=== PATIENT | female | born 1950 | race African-American/Black ===

== ENCOUNTER 2017-01-29 14:37 | Inpatient (IN) | payer MEDICARE, OTHER ==
[~2017-01-29] VITALS: Ht 160 cm; Wt 113.4 kg
[~2017-01-29 14:37] MED LIST: ASPI81TA2 PO; CARV25TA2 PO; FURO-145 PO; INSU100V28 IJ; INUL2TAB2 PO; LOSA25TA13 PO
--- NOTE | 2017-01-29 14:50 | NUR ---
AAOX3, BIBRA C/O DIZZINESS AND FEELING NAUSEOUS, NO VOMITING. RESP IS EVEN AND UNLABORED WITH NAD NOTED. SKIN IS WARM AND DRY. DR BLANCO AT BS FOR EVAL.
[2017-01-29] MEDS ORDERED: MECLIZINE HCL 12.5 MG TABLET PO ONE (15:00)
[2017-01-29] MEDS ORDERED: ONDANSETRON HCL/PF 4 MG/2 ML VIAL IVP ONE (15:00)
[2017-01-29 15:02] LABS: BASOPHILS # (AUTO) 0.1 /CMM (0.0-0.2); BASOPHILS % (AUTO) 0.6 % (0.0-2.0); EOSINOPHILS # (AUTO) 0.1 /CMM (0.0-0.7); EOSINOPHILS % (AUTO) 1.5 % (0.0-6.0); HEMATOCRIT 39 % (33-45); HEMOGLOBIN 12.6 g/dL (11.5-14.8); LYMPHOCYTES # (AUTO) 2.9 /CMM (0.8-4.8); LYMPHOCYTES % (AUTO) 34.9 % (20.0-44.0); MEAN CORPUSCULAR HEMOGLOBIN 29 PG (26.0-33.0); MEAN CORPUSCULAR HGB CONC 32 g/dl (31.0-36.0); MEAN CORPUSCULAR VOLUME 89 fL (82-100); MONOCYTES # (AUTO) 0.6 /CMM (0.1-1.30); MONOCYTES % (AUTO) 6.7 % (2.0-12.0); NEUTROPHILS # (AUTO) 4.7 /CMM (1.8-8.9); NEUTROPHILS % (AUTO) 56.3 % (43.0-81.0); PLATELET COUNT (AUTO) 255 /CMM (150-450); RDW COEFFICIENT OF VARIATION 14.7 (11.5-15.0); RED BLOOD CELL COUNT(AUTO) 4.38 MIL/uL (4.0-5.2); WHITE BLOOD COUNT (AUTO) 8.3 K/uL (4.3-11.0)
[2017-01-29] MEDS ORDERED: ONDANSETRON HCL/PF 4 MG/2 ML VIAL ONE (15:04)
[2017-01-29] MEDS ORDERED: MECLIZINE HCL 25 MG TABLET ONE (15:04)
--- NOTE | 2017-01-29 15:15 | NUR ---
TRANSPORTED FOR CT HEAD
[2017-01-29 15:23] LABS: CALCIUM, SERUM 9.2 mg/dL (8.5-10.1); CREATININE 0.9 mg/dL (0.6-1.3); POTASSIUM 4.2 mmol/L (3.5-5.1); TROPONIN I 0.038 ng/mL (0.00-0.056)
[2017-01-29 15:25] LABS: INR 0.92 (0.87-1.13); PROTHROMBIN TIME 9.6 SECS (9.5-12.7)
[2017-01-29] MEDS ORDERED: INSULIN REGULAR, HUMAN 100 UNIT/ML 10 ML VIAL ONE (15:59)
[2017-01-29] MEDS ORDERED: INSULIN REGULAR, HUMAN 100 UNIT/ML 10 ML VIAL SQ ONE (16:00)
[2017-01-29] MEDS ORDERED: HYDR-552 PO (16:46)
[2017-01-29] MEDS ORDERED: GABA-534 PO (16:46)
[2017-01-29] MEDS ORDERED: HYDR4TAB57 PO (16:46)
[2017-01-29] MEDS ORDERED: INSU100V3 SQ (16:46)
[2017-01-29] MEDS ORDERED: NPH,100V SQ (16:46)
--- NOTE | 2017-01-29 17:35 | NUR ---
REPORT GIVEN TO YANET DELA CRUZ FOR ROSALIA MS 204
[2017-01-29] MEDS ORDERED: IV NS 0.9% 1,000 ML IV PRN (17:44)
[2017-01-29] MEDS ORDERED: MAGNESIUM HYDROXIDE 30 ML UDC PO PRN (18:00)
[2017-01-29] MEDS ORDERED: ONDANSETRON HCL/PF 4 MG/2 ML VIAL IVP PRN (18:00)
[2017-01-29] MEDS ORDERED: HYDROCODONE/APAP 5/325MG 1 EACH TABLET PO PRN (18:00)
[2017-01-29] MEDS ORDERED: DEXTROSE 50%-WATER 50 ML DISP.SYRIN IV PRN (18:00)
[2017-01-29] MEDS ORDERED: MAG HYDROX/AL HYDROX/SIMETH 30 ML UDC PO PRN (18:00)
[2017-01-29 18:28] VITALS: BP 159/68
--- NOTE | 2017-01-29 18:30 | NUR ---
RN NOTES RECEIVED PATIENT FROM ER. NO SOB OR DISTRESS NOTED AT THIS TIME. PATIENT DENIES PAIN, BUT REPORT DIZZINESS. VITALS CHECKED AND RECORDED. PATIENT ORIENTED TO ROOM AND CALL LIGHT. BED IN A LOW POSITION, CALL LIGHT WITHIN PATIENT REACH. WILL ENDORSE FOR ROSALIA.
[2017-01-29 20:00] VITALS: BP_SYST 120; BP_SYST 143; BP_DIAS 66; BP_DIAS 78
--- NOTE | 2017-01-29 20:00 | NUR ---
MS RN NOTES RECEIVED RESTING COMFORTABLY ON BED,A/O X4,STILL WITH EPISODE OF DIZZINESS.SALINE LOCK RIGHT AC INTACT AND PATENT.OBESE,WITH LEFT FOOT OLD WOUND NONE DRAINING NOTES.CLAIMED WITH KNOWN HX OF STROKE 2010,SLIGHT WEAKNESS NOTED ON RIGHT ARM AND RIGHT LEG.AMBULATE WITH WALKER.WITH KNOWN HX OF PREVIOUS FALLS 2 MOS AGO.WILL CONTINUE TO MONITOR STATUS.
[2017-01-29] MEDS: CARVEDILOL 12.5 MG TABLET PO SCH (21:03)
[2017-01-29] MEDS: MECLIZINE HCL 12.5 MG TABLET PO PRN (21:06)
--- NOTE | 2017-01-29 21:06 | NUR ---
MS RN NOTES STILL FEELING DIZZY,MEDICATED WITH MECLIZINE 25MG PO ORDERED.
[2017-01-29] MEDS: BLOOD SUGAR DIAGNOSTIC 1 EACH STRIP VI SCH (21:08)
[2017-01-29] MEDS: *INSULIN REGULAR(HUMULIN R)HUM 100 UNIT/ML VIAL SQ PRN (21:13)
--- NOTE | 2017-01-29 21:30 | NUR ---
MS RN NOTES ACCU-CHECK BLOOD SUGAR [id number],COVERED WITH HUMULIN R 6 UNITS PER SLIDING SCALE.SNACKS PROVIDED AT BEDSIDE.
[2017-01-30] MEDS: BLOOD SUGAR DIAGNOSTIC 1 EACH STRIP VI SCH ×4 (05:54→22:30)
[2017-01-30] MEDS: INSULIN REGULAR, HUMAN 100 UNIT/ML 3 ML VIAL SQ PRN ×3 (05:59→18:25)
--- NOTE | 2017-01-30 06:09 | NUR ---
MS RN NOTES BLOOD SUGAR CHECK 139,COVERED WITH HUMULIN R 2 UNITS PER SLIDING SCALE.SLEPT WELL.STILL FEEL DIZZY BUT NOT THAT STRONG.CALL LIGHT IN REACH,NEEDS ATTENDED.WILL ENDORSE TO DAY NURSE FOR ROSALIA.
--- NOTE | 2017-01-30 06:33 | NUR ---
MS RN NOTES IV SITE INFILTRATED,NEW SALINE LOCK PLACE ON RFA#22,SAME IVF INFUSING.
[2017-01-30 06:51] LABS: BASOPHILS % (AUTO) 0.2 % (0.0-2.0); EOSINOPHILS # (AUTO) 0.1 /CMM (0.0-0.7); EOSINOPHILS % (AUTO) 1.1 % (0.0-6.0); HEMATOCRIT 38 % (33-45); HEMOGLOBIN 12.1 g/dL (11.5-14.8); LYMPHOCYTES # (AUTO) 3.3 /CMM (0.8-4.8); LYMPHOCYTES % (AUTO) 43.1 % (20.0-44.0); MEAN CORPUSCULAR HEMOGLOBIN 29 PG (26.0-33.0); MEAN CORPUSCULAR HGB CONC 32 g/dl (31.0-36.0); MEAN CORPUSCULAR VOLUME 90 fL (82-100); MONOCYTES # (AUTO) 0.5 /CMM (0.1-1.30); MONOCYTES % (AUTO) 6.7 % (2.0-12.0); NEUTROPHILS # (AUTO) 3.8 /CMM (1.8-8.9); NEUTROPHILS % (AUTO) 48.9 % (43.0-81.0); PLATELET COUNT (AUTO) 241 /CMM (150-450); RDW COEFFICIENT OF VARIATION 14.7 (11.5-15.0); RED BLOOD CELL COUNT(AUTO) 4.21 MIL/uL (4.0-5.2); WHITE BLOOD COUNT (AUTO) 7.7 K/uL (4.3-11.0)
--- NOTE | 2017-01-30 07:06 | NUR ---
RN INITIAL NOTES REPORT RECEIVED AT THE BEDSIDE. PATIENT IS SLEEPING. NO SOB OR DISTRESS NOTED AT THIS TIME. PATIENT DOES NOT APPEAR TO BE IN PAIN, NO FACIAL GRIMACE NOTED. BED IN A LOW POSITION, CALL LIGHT WITHIN PATIENT REACH. WILL CONTINUE TO MONITOR.
[2017-01-30 07:15] LABS: THYROID STIMULATING HORMONE 0.798 uIU/mL (0.358-3.74)
[2017-01-30 07:33] LABS: CREATININE 0.8 mg/dL (0.6-1.3); MAGNESIUM 1.9 mg/dL (1.8-2.4); POTASSIUM 4.1 mmol/L (3.5-5.1)
[2017-01-30 08:00] VITALS: BP 143/76
[2017-01-30] MEDS: ASPIRIN 81 MG TAB.CHEW PO SCH (08:54)
[2017-01-30] MEDS: INSULIN NPH, HUMAN ISOPHANE 100 UNIT/ML VIAL SQ SCH ×2 (08:55→16:37)
[2017-01-30] MEDS: CARVEDILOL 12.5 MG TABLET PO SCH ×2 (08:55→22:29)
[2017-01-30] MEDS: GABAPENTIN 300 MG CAPSULE PO SCH ×3 (08:55→16:37)
[2017-01-30] MEDS: INSULIN REGULAR, HUMAN 100 UNIT/ML 3 ML VIAL SQ SCH ×2 (08:55→16:37)
[2017-01-30] MEDS: FAMOTIDINE (20 MG) 20 MG TABLET PO SCH (08:55)
[2017-01-30] MEDS: LOSARTAN POTASSIUM 25 MG TABLET PO SCH (08:55)
[2017-01-30] MEDS: MECLIZINE HCL 12.5 MG TABLET PO PRN (08:58)
[2017-01-30 16:24] LABS: APPEARANCE,URINE CLEAR (CLEAR); BILIRUBIN,URINE NEGATIVE (NEGATIVE); BLOOD, URINE TRACE-INTA Ery/uL (NEGATIVE); COLOR,URINE YELLOW (YELLOW); KETONES,URINE NEGATIVE (NEGATIVE); LEUKOCYTE ESTERASE ,URINE NEGATIVE (NEGATIVE); NITRITE, URINE NEGATIVE (NEGATIVE); PH,URINE 5.5 (5.0-8.0); PROTEIN,URINE NEGATIVE (NEGATIVE); UGLUCOSE 2+ mg/dL (NEGATIVE)
[2017-01-30 16:28] VITALS: BP 142/73
[2017-01-30 16:34] LABS: BACTERIA,URINE 3+ /HPF (None Seen)
[2017-01-30] MEDS: SILVER SULFADIAZINE CREAM 25 GM TUBE TP SCH (16:36)
[2017-01-30 20:00] VITALS: BP 137/67
[2017-01-30] MEDS: *INSULIN REGULAR(HUMULIN R)HUM 100 UNIT/ML VIAL SQ PRN (22:36)
[2017-01-31] MEDS: SILVER SULFADIAZINE CREAM 25 GM TUBE TP SCH ×2 (02:30→04:02)
--- NOTE | 2017-01-31 05:36 | NUR ---
MS RN NOTE PATIENT REFUSING PICTURE TO BE TAKEN OF WOUND. WILL TRY AGAIN LATER.
--- NOTE | 2017-01-31 06:13 | NUR ---
RN CLOSING NOTES PATIENT SLEEPING IN BED. NO SOB OR DISTRESS NOTED AT THIS TIME. PATIENT DOES NOT APPEAR TO BE IN PAIN, NO FACIAL GRIMACE NOTED. BED IN A LOW POSITION, CALL LIGHT WITHIN PATIENT REACH. WILL ENDORSE TO DAY SHIFT FOR ROSALIA.
[2017-01-31] MEDS: BLOOD SUGAR DIAGNOSTIC 1 EACH STRIP VI SCH ×4 (06:42→21:44)
--- NOTE | 2017-01-31 07:45 | NUR ---
RN MS NOTES PATIENT ALERT AND ORIENTED X4, DENIES PAIN AT THIS TIME, SEEN BY DR. FITZGERALD AND DISCUSSED A LEFT FOOT BIOPSY, PATIENT AGREED, NEEDS ATTENDED AND MET, CALL LIGHT WITHIN REACH, WILL CONTINUE TO MONITOR.
[2017-01-31] MEDS: INSULIN REGULAR, HUMAN 100 UNIT/ML 3 ML VIAL SQ PRN ×2 (07:57→12:13)
[2017-01-31 08:00] VITALS: BP 164/97
--- NOTE | 2017-01-31 08:48 | NUR ---
WOUND CARE CONSULT: PT PRESENTS WITH LEFT FOOT WOUND, PRESENT ON ADMISSION. RECOMMENDATIONS MADE FOR WOUND CARE AND SKIN PROTECTION. DISCUSSED WITH NURSING STAFF. PT IS AMBULATORY AND CONTINENT. ABHAY SCORE CURRENTLY 19. WILL SEE PRN. STAUFFER IN AGREEMENT WITH PLAN OF CARE. Addendum: 01/31/17 at 0850 by KATIE VALLE WNDNU Amended: Links added.
[2017-01-31] MEDS: GABAPENTIN 300 MG CAPSULE PO SCH ×3 (09:22→17:36)
[2017-01-31] MEDS: FAMOTIDINE (20 MG) 20 MG TABLET PO SCH (09:22)
[2017-01-31] MEDS: ASPIRIN 81 MG TAB.CHEW PO SCH (09:22)
[2017-01-31] MEDS: CARVEDILOL 12.5 MG TABLET PO SCH ×2 (09:23→21:43)
[2017-01-31] MEDS: LOSARTAN POTASSIUM 25 MG TABLET PO SCH (09:23)
[2017-01-31] MEDS: INSULIN REGULAR, HUMAN 100 UNIT/ML 3 ML VIAL SQ SCH ×2 (09:29→17:00)
[2017-01-31] MEDS: INSULIN NPH, HUMAN ISOPHANE 100 UNIT/ML VIAL SQ SCH ×2 (09:30→17:00)
[2017-01-31] MEDS: ACETAMINOPHEN 325 MG TABLET PO PRN ×2 (12:22→21:43)
[2017-01-31 16:00] VITALS: BP 141/77
[2017-01-31] MEDS ORDERED: LIDOCAINE 1% INJ 50 ML MDV IJ ONE (16:30)
--- NOTE | 2017-01-31 17:47 | NUR ---
RN MS NOTES LEFT FOOT BIOPSY COMPLETED BY DR. FITZGERALD, LEFT FOOT WITH SMALL SUTURE, AND COVERED WITH KERLIX. TREATMENT COMPLETED. BIOPSY SAMPLE SENT TO PATHOLOGY.
--- NOTE | 2017-01-31 18:33 | NUR ---
RN MS NOTES PATIENT ALERT AND ORIENTED, BS 115, REGULAR INSULIN AND NOVOLIN N, REFUSED BY PATIENT, WILL MONITOR FOR S/SX OF HYPO OR HYPERGLYCEMIA, DENIES PAIN AT THIS TIME, LEFT FOOT COVERED WITH KERLIX, NO BLEEDING NOTED, ASSISTED TO RESTROOM, ABLE TO AMBULATE WITH WALKER, REFUSED PT THIS AFTERNOON, CALL LIGHT WITHIN REACH, WILL ENDORSE TO HAM SMOKER FOR ROSALIA.
--- NOTE | 2017-01-31 19:30 | NUR ---
MS RN NOTE RECEIVED PATIENT AWAKE AND ALERT IN BED. NO DISTRESS OR SOB NOTED. IV SITE INTACT WITH NO REDNESS NOTED. BED LOCKED AND IN LOWEST POSITION. SIDE RAILS UP, CALL LIGHT WITHIN REACH. WILL CONTINUE TO MONITOR.
[2017-01-31 20:00] VITALS: BP_SYST 170; BP_SYST 173; BP_DIAS 83; BP_DIAS 85
--- NOTE | 2017-01-31 20:00 | NUR ---
MS RN NOTE PATIENT PICKED UP FOR BRAIN MRI.
--- NOTE | 2017-01-31 20:50 | NUR ---
MS RN NOTE PATIENT RETURNED FROM MRI IN STABLE CONDITION.
[2017-01-31] MEDS: *INSULIN REGULAR(HUMULIN R)HUM 100 UNIT/ML VIAL SQ PRN (21:48)
[2017-01-31] MEDS ORDERED: INSULIN DETEMIR 100 UNIT/ML CARTRIDGE SQ SCH (22:00)
[2017-01-31] MEDS ORDERED: ATORVASTATIN 40 MG TABLET PO SCH (22:00)
[2017-02-01] MEDS: BLOOD SUGAR DIAGNOSTIC 1 EACH STRIP VI SCH ×3 (06:39→17:33)
[2017-02-01] MEDS: ACETAMINOPHEN 325 MG TABLET PO PRN ×2 (06:39→12:39)
--- NOTE | 2017-02-01 06:56 | NUR ---
MS RN NOTE PATIENT STABLE. WILL ENDORSE TO DAY SHIFT FOR ROSALIA.
--- NOTE | 2017-02-01 07:56 | NUR ---
RN NOTES RECEIVED PT. PT IS STABLE AND RESTING IN BED. A/OX4. PT IS ON RA WITH O2 SAT ABOVE 95%. NO S/S OF DISTRESS OR SOB AT THIS TIME. IV ACCESS LOCATED ON RIGHT FA 22G SL. SAFETY MEASURES IN PLACE, CALL LIGHT WITHIN REACH. WILL CONTINUE TO MONITOR.
[2017-02-01 08:00] VITALS: BP 151/82
[2017-02-01] MEDS: ASPIRIN 81 MG TAB.CHEW PO SCH (08:26)
[2017-02-01] MEDS: FAMOTIDINE (20 MG) 20 MG TABLET PO SCH (08:27)
[2017-02-01] MEDS: GABAPENTIN 300 MG CAPSULE PO SCH ×3 (08:27→17:01)
[2017-02-01] MEDS: LOSARTAN POTASSIUM 25 MG TABLET PO SCH (08:27)
[2017-02-01] MEDS: CARVEDILOL 12.5 MG TABLET PO SCH (08:28)
[2017-02-01] MEDS: INSULIN NPH, HUMAN ISOPHANE 100 UNIT/ML VIAL SQ SCH ×2 (08:42→17:22)
[2017-02-01] MEDS ORDERED: HYDROGEL DRESSING 90 GM TUBE TP SCH (09:00)
[2017-02-01] MEDS: INSULIN REGULAR, HUMAN 100 UNIT/ML 3 ML VIAL SQ SCH ×2 (09:00→17:00)
--- NOTE | 2017-02-01 09:47 | NUR ---
RN NOTES AM SCHEDULED REGULAR INSULIN HELD PER INITIAL BS READING OF 161.
[2017-02-01 09:54] LABS: BASOPHILS # (AUTO) 0.1 /CMM (0.0-0.2); BASOPHILS % (AUTO) 0.6 % (0.0-2.0); EOSINOPHILS # (AUTO) 0.1 /CMM (0.0-0.7); EOSINOPHILS % (AUTO) 1.4 % (0.0-6.0); HEMATOCRIT 39 % (33-45); HEMOGLOBIN 12.3 g/dL (11.5-14.8); LYMPHOCYTES # (AUTO) 3.4 /CMM (0.8-4.8); LYMPHOCYTES % (AUTO) 39.1 % (20.0-44.0); MEAN CORPUSCULAR HEMOGLOBIN 28 PG (26.0-33.0); MEAN CORPUSCULAR HGB CONC 32 g/dl (31.0-36.0); MEAN CORPUSCULAR VOLUME 90 fL (82-100); MONOCYTES # (AUTO) 0.6 /CMM (0.1-1.30); MONOCYTES % (AUTO) 7.1 % (2.0-12.0); NEUTROPHILS # (AUTO) 4.5 /CMM (1.8-8.9); NEUTROPHILS % (AUTO) 51.8 % (43.0-81.0); PLATELET COUNT (AUTO) 234 /CMM (150-450); RDW COEFFICIENT OF VARIATION 15.2 (11.5-15.0); RED BLOOD CELL COUNT(AUTO) 4.34 MIL/uL (4.0-5.2); WHITE BLOOD COUNT (AUTO) 8.7 K/uL (4.3-11.0)
[2017-02-01 10:01] LABS: CALCIUM, SERUM 9.2 mg/dL (8.5-10.1); CREATININE 0.8 mg/dL (0.6-1.3); POTASSIUM 4.1 mmol/L (3.5-5.1)
[2017-02-01] MEDS: INSULIN REGULAR, HUMAN 100 UNIT/ML 3 ML VIAL SQ PRN ×2 (12:26→17:01)
[2017-02-01 16:00] VITALS: BP 124/49
--- NOTE | 2017-02-01 18:56 | NUR ---
DISCHARGE NOTE PT D/C HOME. ALL DISCHARGE PAPERWORK SIGNED AND COPIED. PT EXITCARE EDUCATION PERFORMED. PT VERBALIZED UNDERSTANDING. BELONGINGS LIST SIGNED AND COPIED. PT VERBALIZES UNDERSTANDING OF ALL TEACHING. MD PRESCRIPTION GIVEN TO PT. PT DISCHARGED TO FRIEND, SUNG AND LEFT IN A PRIVATE CARE.
== END 2017-02-01 19:16 | disposition home or self-care (01) | DRG 74 ==
LOC: ER 14:39 → MEDSG2 17:22
PROVIDERS: ADMIT Nurse Practitioner Acute Care; ATTEND Nurse Practitioner Acute Care
PROC: 0HBNXZX Excision of Left Foot Skin, External Approach, Diagnostic (ICD-10-PCS; principal; 2017-01-31)
DX: G90.8 Other disorders of autonomic nervous system (principal); E44.0 Moderate protein-calorie malnutrition; I11.0 Hypertensive heart disease with heart failure; E11.621 Type 2 diabetes mellitus with foot ulcer; I50.32 Chronic diastolic (congestive) heart failure; Z68.41 Body mass index [BMI] 40.0-44.9, adult; E11.42 Type 2 diabetes mellitus with diabetic polyneuropathy; E11.65 Type 2 diabetes mellitus with hyperglycemia; G89.29 Other chronic pain; Z88.0 Allergy status to penicillin; K27.9 Peptic ulcer, site unspecified, unspecified as acute or chronic, without hemorrhage or perforation; E66.01 Morbid (severe) obesity due to excess calories; L97.529 Non-pressure chronic ulcer of other part of left foot with unspecified severity; I87.2 Venous insufficiency (chronic) (peripheral)
CPT/HCPCS: 36415; 70450-TC; 70551-TC; 71010-TC; 80048-TC; 80061-TC; 81000-TC; 82962-TC; 83690-TC; 83735-TC; 84100-TC; 84443-TC; 84484-TC; 85025-TC; 85730-TC; 87081-TC; 87086-TC; 88305-TC; 88312-TC; 97116-TC; 97530-TC; A4606; A6248; A6403; J1815; J2405; J3490; J7030; J8597; Z7610

== ENCOUNTER 2017-02-17 11:00 | Outpatient (CLI) | payer MEDICARE, OTHER ==
[~2017-02-17 11:00] MED LIST changes: -FURO-145 PO; +GABA-534 PO; +HYDR-552 PO; +HYDR4TAB57 PO; -INSU100V28 IJ; +INSU100V3 SQ; -INUL2TAB2 PO; +NPH,100V SQ
== END 2017-02-17 23:59 | disposition home or self-care (01) ==
LOC: WOU 11:00
PROVIDERS: ATTEND Podiatrist Foot & Ankle Surgery
DX: E11.40 Type 2 diabetes mellitus with diabetic neuropathy, unspecified (principal); B35.3 Tinea pedis; Z87.891 Personal history of nicotine dependence
CPT/HCPCS: G0463

== ENCOUNTER 2017-10-17 13:15 | Outpatient (CLI) | payer MEDICARE, OTHER ==
[~2017-10-17 13:15] MED LIST changes: +ASPI-1169 PO; -ASPI81TA2 PO
== END 2017-10-17 23:59 | disposition home or self-care (01) ==
LOC: WOU 13:15
PROVIDERS: ATTEND Podiatrist Foot & Ankle Surgery
DX: E11.40 Type 2 diabetes mellitus with diabetic neuropathy, unspecified (principal); B35.3 Tinea pedis; M79.672 Pain in left foot; E66.9 Obesity, unspecified; Z68.41 Body mass index [BMI] 40.0-44.9, adult
CPT/HCPCS: G0463; Z7610

== ENCOUNTER 2017-10-29 14:32 | Emergency (ER) | payer MEDICARE, OTHER ==
[~2017-10-29] VITALS: Ht 160 cm; Wt 106.6 kg
--- NOTE | 2017-10-29 14:35 | NUR ---
AAOX3, CAME TO ER C/O DIZZINESS AND HYPERGLYCEMIA, HD=653VB/DL AT HOME. RR IS EVEN AND UNLABORED WITH NAD NOTED. SKIN IS WARM AND DRY. PLACED ON MONITOR. AWAITING MD FOR EVAL.
[2017-10-29] MEDS ORDERED: INSULIN REGULAR, HUMAN 100 UNIT/ML 10 ML VIAL ONE (15:29)
[2017-10-29] MEDS ORDERED: MECLIZINE HCL 25 MG TABLET ONE ×2 (15:29→20:59)
[2017-10-29] MEDS ORDERED: INSULIN REGULAR, HUMAN 100 UNIT/ML 10 ML VIAL SQ ONE (15:30)
[2017-10-29] MEDS ORDERED: MECLIZINE HCL 12.5 MG TABLET PO ONE ×2 (15:30→21:00)
[2017-10-29 15:47] LABS: BASOPHILS # (AUTO) 0.1 /CMM (0.0-0.2); BASOPHILS % (AUTO) 0.9 % (0.0-2.0); EOSINOPHILS % (AUTO) 1.3 % (0.0-6.0); HEMATOCRIT 39 % (33-45); HEMOGLOBIN 12.7 g/dL (11.5-14.8); LYMPHOCYTES # (AUTO) 2.5 /CMM (0.8-4.8); LYMPHOCYTES % (AUTO) 35.3 % (20.0-44.0); MEAN CORPUSCULAR HEMOGLOBIN 29 PG (26.0-33.0); MEAN CORPUSCULAR HGB CONC 33 g/dl (31.0-36.0); MEAN CORPUSCULAR VOLUME 88 fL (82-100); MONOCYTES # (AUTO) 0.6 /CMM (0.1-1.30); MONOCYTES % (AUTO) 8.4 % (2.0-12.0); NEUTROPHILS # (AUTO) 3.7 /CMM (1.8-8.9); NEUTROPHILS % (AUTO) 54.1 % (43.0-81.0); PLATELET COUNT (AUTO) 204 /CMM (150-450); RDW COEFFICIENT OF VARIATION 15.3 (11.5-15.0); RED BLOOD CELL COUNT(AUTO) 4.41 MIL/uL (4.0-5.2)
[2017-10-29 16:08] LABS: ALBUMIN 3.4 g/dL (3.4-5.0); BILIRUBIN,DIRECT 0.1 mg/dL (0.0-0.2); BILIRUBIN,TOTAL 0.5 mg/dL (0.2-1.0); CALCIUM, SERUM 9.4 mg/dL (8.5-10.1); CREATININE 0.9 mg/dL (0.6-1.3); POTASSIUM 4.6 mmol/L (3.5-5.1); TOTAL PROTEIN, SERUM 7.3 g/dL (6.4-8.2)
[2017-10-29 16:10] LABS: TROPONIN I 0.049 ng/mL (0.00-0.056)
[2017-10-29 16:19] LABS: INR 0.93 (0.85-1.15)
--- NOTE | 2017-10-29 19:22 | NUR ---
REPORT GIVEN TO DARIEN BLAND FOR ROSALIA.
--- NOTE | 2017-10-29 21:12 | NUR ---
SUNG CASTILLO [phone] CALL
--- NOTE | 2017-10-29 22:47 | NUR ---
WAITING FOR PT'S CT HEAD RESULT.
--- NOTE | 2017-10-29 23:28 | NUR ---
CALLED [facility] CASTILLO, NO ANSWER, LEFT VOICE MESSAGE.
--- NOTE | 2017-10-30 00:30 | NUR ---
IV removed. Catheter intact and site benign. Pressure and 4x4 applied to site. No bleeding noted.Patient discharged to home in stable condition. Written and verbal after care instructions given. Patient verbalizes understanding of instruction. VSS. PT LEFT VIA WC TO THE LOBBY. PT'S FAMILY MEMBER IS UBERING PT HOME. PT AMBULATES WITH A WALKER.
[2017-10-30 00:44] VITALS: BP 120/45
== END 2017-10-30 00:47 | disposition home or self-care (01) ==
LOC: ER 14:34
DX: H81.399 Other peripheral vertigo, unspecified ear (principal); E11.9 Type 2 diabetes mellitus without complications; I10 Essential (primary) hypertension; M19.90 Unspecified osteoarthritis, unspecified site; Z88.0 Allergy status to penicillin; Z88.5 Allergy status to narcotic agent; Z86.73 Personal history of transient ischemic attack (TIA), and cerebral infarction without residual deficits; Z79.82 Long term (current) use of aspirin; Z79.84 Long term (current) use of oral hypoglycemic drugs
CPT/HCPCS: 36415; 70450; 71045; 80048; 80076; 83690; 84484; 85025; 85730; 93005; 96372; 99285; A4606; J1815; J8597 ×2; Z7610

== ENCOUNTER 2022-03-02 15:01 | Inpatient (IN) | payer MEDICARE, OTHER ==
[~2022-03-02] VITALS: Ht 160 cm; Wt 104.8 kg
[~2022-03-02 15:01] MED LIST changes: +HYDR-4384 PO; -HYDR-552 PO; -LOSA25TA13 PO; +LOSA25TA27 PO
--- NOTE | 2022-03-02 15:10 | NUR ---
BIB RA 102 FROM HOME, WORSENING SOB X 3 DAYS, WHEEZING, ALBUTEROL HHN ENROUTE, O2SAT WENT UP FROM 84 TO 97 AFTER HHN. PLACED ON BED, TACHYPNEIC RR-27, SATURATING AT 91% ON 4LIT O2.
[2022-03-02] MEDS ORDERED: IPRATROPIUM NEB FS 0.5 MG/2.5 ML AMPUL.NEB NEB ONE (16:00)
[2022-03-02] MEDS ORDERED: ALBUTEROL FS 2.5 MG/0.5 ML VIAL.NEB NEB ONE (16:00)
--- NOTE | 2022-03-02 16:18 | NUR ---
BLOOD DRAWN AND SENT TO LAB
[2022-03-02 16:31] LABS: BASOPHILS # (AUTO) 0.1 K/uL (0.0-0.2); BASOPHILS % (AUTO) 0.8 % (0.0-2.0); EOSINOPHILS % (AUTO) 1.3 % (0.0-6.0); HEMATOCRIT 35 % (33-45); HEMOGLOBIN 11.2 g/dL (11.5-14.8); LYMPHOCYTES # (AUTO) 2.8 K/uL (0.8-4.8); LYMPHOCYTES % (AUTO) 23.4 % (20.0-44.0); MEAN CORPUSCULAR HGB CONC 32 g/dl (31.0-36.0); MEAN CORPUSCULAR VOLUME 87 fL (82-100); MONOCYTES # (AUTO) 0.5 K/uL (0.1-1.30); MONOCYTES % (AUTO) 4.6 % (2.0-12.0); NEUTROPHILS # (AUTO) 8.4 K/uL (1.8-8.9); NEUTROPHILS % (AUTO) 69.9 % (43.0-81.0); PLATELET COUNT (AUTO) 285 K/uL (150-450)
[2022-03-02] MEDS ORDERED: ALBU18HF2 IH (16:34)
[2022-03-02] MEDS ORDERED: INSU100V9 SQ (16:34)
[2022-03-02] MEDS ORDERED: NPH,100V2 SQ (16:34)
[2022-03-02] MEDS ORDERED: AMLO-213 PO (16:34)
[2022-03-02] MEDS ORDERED: INSU100I26 SQ (16:34)
[2022-03-02 16:48] LABS: CALCIUM, SERUM 9.4 mg/dL (8.5-10.1); CARBON DIOXIDE 28 mmol/L (21-32); CHLORIDE 103 mmol/L (98-107); CREATININE 0.9 mg/dL (0.6-1.3); GLUCOSE 172 mg/dL (74-106); POTASSIUM 4.7 mmol/L (3.5-5.1); SODIUM SERUM 139 mmol/L (136-145); UREA NITROGEN, BLOOD 14 mg/dL (7-18)
[2022-03-02] MEDS ORDERED: ALBUTEROL FS 2.5 MG/0.5 ML VIAL.NEB NEB PRN (17:00)
[2022-03-02] MEDS ORDERED: IPRATROPIUM NEB FS 0.5 MG/2.5 ML AMPUL.NEB NEB PRN (17:00)
[2022-03-02] MEDS ORDERED: DEXTROSE 50%-WATER 50 ML DISP.SYRIN IV PRN (17:00)
[2022-03-02] MEDS ORDERED: IPRATROPIUM NEB FS 0.5 MG/2.5 ML AMPUL.NEB ONE (17:37)
[2022-03-02] MEDS ORDERED: ALBUTEROL FS 2.5 MG/0.5 ML VIAL.NEB ONE (17:37)
[2022-03-02] MEDS: BLOOD SUGAR DIAGNOSTIC 1 EACH STRIP IN SCH ×2 (18:50→21:34)
[2022-03-02] MEDS: FUROSEMIDE 40 MG/4 ML VIAL IV SCH ×2 (19:00→22:15)
[2022-03-02] MEDS ORDERED: FUROSEMIDE 40 MG/4 ML VIAL ONE (19:01)
[2022-03-02 20:00] VITALS: BP 155/82
--- NOTE | 2022-03-02 20:08 | NUR ---
RN NOTE RECEIVED REPORT FROM BRANCH OR DEPARTMENT CHIEF LIBRARIANYANET LUA.
--- NOTE | 2022-03-02 20:08 | NUR ---
REPORT GIVEN TO PRINCESS HOLT ROOM 119-2 FOR ROSALIA
--- NOTE | 2022-03-02 20:19 | NUR ---
GETTING TRANSFERRED TO 119 UNDER ACLS
--- NOTE | 2022-03-02 20:36 | NUR ---
INITIAL RN NOTE PT ARRIVED TO UNIT VIA GURNEY. PT ADMITTED FOR CHF EXACERBATION WITH SIGNIFICANT MEDICAL HISTORY OF ASTHMA AND CHF. PT ON NON-REBREATHER MASK AT 8LPM WITH O2SAT OF 93%; NOTED TO HAVE SOB; NO OTHER S/S OF RESP DISTRESS, NO COUGH, NON-LABORED AND EQUAL BREATHING. PT ATTACHED TO EXTERNAL MONITOR, SR WITH HR OF 85. SKIN ASSESSMENT DONE, SKIN NOTED TO BE INTACT. IV ACCESS ON RFA 22G, INTACT AND PATENT, FLUSHES EASILY WITH NO RESISTANCE; NO MEDS/FLUIDS INFUSING THROUGH IT. BED IN LOWEST POSITION, CALL LIGHT WITHIN REACH, SIDE RAILS UP X3. WILL INITIATE PLAN OF CARE. Addendum: 03/03/22 at 0116 by PRINCESS VENKATA HOLT PT VACCINATED AGAINST COVID AND HAS RECEIVED 2 DOSES (YASSSU). FORMER SMOKER; HAD QUIT SMOKING 18 YRS AGO. NO HISTORY OF ALCOHOL USE
[2022-03-02] MEDS: INSULIN GLARGINE, 100 UNIT/ML CARTRIDGE SQ SCH (22:10)
[2022-03-02] MEDS: GABAPENTIN 300 MG CAPSULE PO SCH (22:15)
[2022-03-02] MEDS: CARVEDILOL 12.5 MG TABLET PO SCH (22:15)
[2022-03-03] VITALS: BP 137/56
[2022-03-03] MEDS: FUROSEMIDE 40 MG/4 ML VIAL IV SCH ×6 (02:01→18:30)
[2022-03-03 04:00] VITALS: BP 121/78
--- NOTE | 2022-03-03 07:04 | NUR ---
PROFESSIONAL SYSTEM ADMINISTRATOR CLOSING NOTE PT REMAINS IN BED, AWAKE, A&O X4, CALM, COOPERATIVE. CONTINUES TO BE ON NON-REBREATHER MASK AT 15 LPM WITH O2SAT RANGING FROM 93%-100% THROUGHOUT THE NIGHT; NOTED TO HAVE SOB WITH EXERTION; NO OTHER S/S OF RESP DISTRESS, NO COUGH, NON-LABORED AND EQUAL BREATHING. ATTACHED TO EXTERNAL MONITOR, SR WITH HR RANGING FROM 76- 87. IV ACCESS ON RFA 22G, INTACT AND PATENT, FLUSHES EASILY WITH NO RESISTANCE; NO MEDS/FLUIDS INFUSING THROUGH IT. ALL DUE MEDS ADMINISTERED DURING THE NIGHT. BED IN LOWEST POSITION, CALL LIGHT WITHIN REACH, SIDE RAILS UP X3. WILL ENDORSE TO DAYSHIFT NURSE TO CONTINUE CARE.
--- NOTE | 2022-03-03 07:05 | NUR ---
ENGINE WATCHMAN OPENING NOTES: RECEIVED PATIENT IN BED AWAKE, A&O X4, CALM, COOPERATIVE. CONTINUES TO BE ON NON-REBREATHER MASK AT 15 LPM WITH O2SAT RANGING FROM 93%-100; NO S/S OF RESP DISTRESS, NO COUGH, NON-LABORED AND EQUAL BREATHING. ATTACHED TO EXTERNAL MONITOR, SR WITH HR RANGING FROM 87. IV ACCESS ON RFA 22G, INTACT AND PATENT, FLUSHES EASILY WITH NO RESISTANCE; NO MEDS/FLUIDS INFUSING THROUGH IT. BED IN LOWEST POSITION, CALL LIGHT WITHIN REACH, SIDE RAILS UP X3. WILL MONITOR
[2022-03-03 08:00] VITALS: BP 139/77
[2022-03-03] MEDS: BLOOD SUGAR DIAGNOSTIC 1 EACH STRIP IN SCH ×4 (08:09→22:25)
[2022-03-03] MEDS ORDERED: INSULIN GLARGINE,BASAGLAR 100 UNIT/ML INSULN.PEN SQ SCH (09:00)
[2022-03-03] MEDS: GABAPENTIN 300 MG CAPSULE PO SCH ×2 (09:33→20:33)
[2022-03-03] MEDS: CARVEDILOL 12.5 MG TABLET PO SCH ×2 (09:33→20:34)
[2022-03-03] MEDS: LEVOFLOXACIN 750 MG /D5W 150ML 150 ML IV SCH (10:49)
[2022-03-03 10:56] LABS: ABG BASE EXCESS 9.5 mmol/L; ABG OXYGEN SATURATION 92.6 % (92.0-98.5); ABG PCO2 47.2 mmHg (35.0-45.0); ABG PH 7.478 (7.350-7.450); ABG PO2 63.2 mmHg (75.0-100.0); AaDO2 196.7 mmHg; COHb 0.4 % (0.5-1.5); MetHb 0.1 % (0.0-1.5); O2Hb 92.1 % (94.0-97.0); SITE, ABG Left Radial; VENT MODE, BG 6LPM NC
[2022-03-03 12:00] VITALS: BP 139/57
[2022-03-03] MEDS: INSULIN REGULAR, HUMAN 100 UNIT/ML 3 ML VIAL SQ PRN ×3 (12:27→22:30)
[2022-03-03 16:00] VITALS: BP 128/55
--- NOTE | 2022-03-03 16:00 | NUR ---
RN NOTES: PT IN BED, DENIED SOB, VERBALIZED SHE BREATH BETTER, CONTINUE ON NASAL CANNULA O2 SAT 97%, COMPLETE BED BATH DONE,PT CONTINUE TO USE PUREWIC, PER PT PT WAS ABLE TO WALK FEW STEPS WITH PT, DENIED ANY PAIN OR DISCOMFORT WILL CONTINUE TO MONITOR
--- NOTE | 2022-03-03 18:37 | NUR ---
RN NOTESl: SPOKE TO DR JUSTIN I GAVE LASIX IV EVERY 4 HOURS LAST DOSE GIVEN 1707 , I SAW HIS NEW ORDER TO CHANGE TO BID , CLARIFY TO START NOW PER eMAR OR SHALL WE START TOMORROW WITH ORDER TO START TOMORROW., CHARGE NURSE MADE AWARE
--- NOTE | 2022-03-03 18:45 | NUR ---
LACQUER POLISHER CLOSING NOTE PT REMAINS IN BED, AWAKE, A&O X4, CALM, COOPERATIVE. CONTINUE ON NASAL CANNULA AT 5L/MIN,O 2 SAT 97%% THROUGHOUT THE DAY; NOTED TO HAVE SOB WITH EXERTION; NO OTHER S/S OF RESP DISTRESS, NO COUGH, NON-LABORED AND EQUAL BREATHING. ATTACHED TO EXTERNAL MONITOR, SR WITH HR RANGING FROM 76- 87. IV ACCESS ON RFA 22G, INTACT AND PATENT, FLUSHES EASILY WITH NO RESISTANCE; NO MEDS/FLUIDS INFUSING THROUGH IT. ALL DUE MEDS ADMINISTERED DURING THE NIGHT. BED IN LOWEST POSITION, CALL LIGHT WITHIN REACH, SIDE RAILS UP X3. WILL ENDORSE TO NIGHTSHIFT NURSE TO CONTINUE CARE.
--- NOTE | 2022-03-03 19:30 | NUR ---
RN OPEN NOTE: ALERT AND ORIENTED TIMES FOUR. ON 02 5 LMP NC. UNLABORED BREATHING. IN ON RIGHT FOREARM 22 G PATENT WITH NO S/S OF COMPLICATIONS. ON TELE MONITOR WITH A READING OF SR 68. DENIES PAIN OR DISCOMFORT. HOB ELEVATED SEMI-FOWLERS POSITION. PUREWICK IN PLACE WITH YELLOW URINE. BED IN LOW POSITION, LOCKED, EXIT ALARM ON, BILATERAL HALF SIDE RAILS UPX2. CALL LIGHT IN REACH. FAMILY AT BEDSIDE.
[2022-03-03 20:00] VITALS: BP 140/63
[2022-03-03] MEDS: INSULIN GLARGINE, 100 UNIT/ML CARTRIDGE SQ SCH (22:28)
[2022-03-04] VITALS: BP 137/65
[2022-03-04 04:00] VITALS: BP 140/45
--- NOTE | 2022-03-04 07:00 | NUR ---
RN CLOSING NOTE: ALERT AND ORIENTED TIMES FOUR. ON 02 5 LMP NC. UNLABORED BREATHING. IN ON RIGHT FOREARM 22 G PATENT WITH NO S/S OF COMPLICATIONS. ON TELE MONITOR WITH A READING OF SINUS KAYLEY 53. DENIES PAIN OR DISCOMFORT. HOB ELEVATED SEMI-FOWLERS POSITION. PURE WICK IN PLACE WITH YELLOW URINE. BED IN LOW POSITION, LOCKED, EXIT ALARM ON, BILATERAL HALF SIDE RAILS UPX2. CALL LIGHT IN REACH. FAMILY AT BEDSIDE.
[2022-03-04] MEDS: BLOOD SUGAR DIAGNOSTIC 1 EACH STRIP IN SCH ×4 (07:30→22:00)
[2022-03-04 08:00] VITALS: BP 146/102
[2022-03-04] MEDS: CARVEDILOL 12.5 MG TABLET PO SCH ×2 (09:09→22:49)
[2022-03-04] MEDS: FUROSEMIDE 40 MG/4 ML VIAL IV SCH ×2 (09:10→17:35)
[2022-03-04] MEDS: GABAPENTIN 300 MG CAPSULE PO SCH ×2 (09:10→22:50)
[2022-03-04] MEDS: LEVOFLOXACIN 750 MG /D5W 150ML 150 ML IV SCH (09:11)
[2022-03-04 09:26] LABS: ALBUMIN 2.6 g/dL (3.4-5.0); BILIRUBIN,TOTAL 0.7 mg/dL (0.2-1.0); CALCIUM, SERUM 9.6 mg/dL (8.5-10.1); CREATININE 1.1 mg/dL (0.6-1.3); MAGNESIUM 2.3 mg/dL (1.8-2.4); PHOSPHORUS 3.7 mg/dL (2.5-4.9); POTASSIUM 3.1 mmol/L (3.5-5.1); TOTAL PROTEIN, SERUM 7.2 g/dL (6.4-8.2)
[2022-03-04 09:53] LABS: BASOPHILS % (AUTO) 0.4 % (0.0-2.0); EOSINOPHILS % (AUTO) 1.8 % (0.0-6.0); HEMATOCRIT 33 % (33-45); HEMOGLOBIN 10.7 g/dL (11.5-14.8); LYMPHOCYTES # (AUTO) 2.6 K/uL (0.8-4.8); LYMPHOCYTES % (AUTO) 28.2 % (20.0-44.0); MEAN CORPUSCULAR HGB CONC 32 g/dl (31.0-36.0); MEAN CORPUSCULAR VOLUME 88 fL (82-100); MONOCYTES # (AUTO) 0.6 K/uL (0.1-1.30); MONOCYTES % (AUTO) 6.8 % (2.0-12.0); NEUTROPHILS # (AUTO) 5.7 K/uL (1.8-8.9); NEUTROPHILS % (AUTO) 62.8 % (43.0-81.0); PLATELET COUNT (AUTO) 282 K/uL (150-450); RED BLOOD CELL COUNT(AUTO) 3.78 MIL/uL (4.0-5.2); WHITE BLOOD COUNT (AUTO) 9.1 K/uL (4.3-11.0)
[2022-03-04 12:00] VITALS: BP 129/70
[2022-03-04] MEDS ORDERED: POTASSIUM CHLORIDE 20 MEQ TAB.PRT.SR PO ONE ×2 (14:00→17:30)
[2022-03-04 16:00] VITALS: BP 111/73
[2022-03-04] MEDS: INSULIN REGULAR, HUMAN 100 UNIT/ML 3 ML VIAL SQ PRN (17:51)
--- NOTE | 2022-03-04 19:57 | NUR ---
RECEIVED THE PATIENT FROM THE OFF-GOING NURSE, PATIENT A/O X 4, /DENIES PAIN/DISCOMFORT. PATIENT MEDICATED PER MD ORDERS, (SEE eMAR). (RT0 F/A IV INFILTRATED AND REMOVED, DRY PROTECTIVE DRESSING IN PLACE, #22G ANGIO-CATH INSERTED TO (RT) HAND, SITE WNL AND IVABT ADMINISTERED PER MD ORDERS. . PATIENT HAS PUREWICK IN PLACE DRAINING LIGHT LIZA URINE. PATIENT IS STABLE ON THE BED. FALL PRECAUTION IN PLACE BEDSIDE REPORT GIVEN TO THE ON-COMING NURSE.
[2022-03-04 20:00] VITALS: BP 122/55
[2022-03-05] VITALS: BP 138/64
[2022-03-05] MEDS: INSULIN GLARGINE, 100 UNIT/ML CARTRIDGE SQ SCH (02:15)
[2022-03-05] MEDS: INSULIN REGULAR, HUMAN 100 UNIT/ML 3 ML VIAL SQ PRN ×2 (02:17→13:20)
--- NOTE | 2022-03-05 02:17 | NUR ---
Insulin administration was scanned was unable to file due to computer malfunction Actual dose given at 2215.
[2022-03-05 04:00] VITALS: BP 137/82
--- NOTE | 2022-03-05 06:45 | NUR ---
Pt stable , slept for long periods possible d/c today. Assisted up to br for BM.
[2022-03-05 07:44] LABS: BILIRUBIN,TOTAL 0.6 mg/dL (0.2-1.0); CALCIUM, SERUM 9.6 mg/dL (8.5-10.1); MAGNESIUM 2.3 mg/dL (1.8-2.4); PHOSPHORUS 3.5 mg/dL (2.5-4.9); POTASSIUM 3.6 mmol/L (3.5-5.1); TOTAL PROTEIN, SERUM 7.3 g/dL (6.4-8.2)
[2022-03-05 08:00] VITALS: BP 143/68
[2022-03-05 08:32] LABS: BASOPHILS % (AUTO) 0.2 % (0.0-2.0); EOSINOPHILS % (AUTO) 1.5 % (0.0-6.0); HEMATOCRIT 33 % (33-45); HEMOGLOBIN 10.5 g/dL (11.5-14.8); LYMPHOCYTES # (AUTO) 2.5 K/uL (0.8-4.8); LYMPHOCYTES % (AUTO) 27.8 % (20.0-44.0); MEAN CORPUSCULAR HGB CONC 32 g/dl (31.0-36.0); MEAN CORPUSCULAR VOLUME 88 fL (82-100); MONOCYTES # (AUTO) 0.6 K/uL (0.1-1.30); NEUTROPHILS # (AUTO) 5.7 K/uL (1.8-8.9); NEUTROPHILS % (AUTO) 63.5 % (43.0-81.0); PLATELET COUNT (AUTO) 312 K/uL (150-450); RED BLOOD CELL COUNT(AUTO) 3.71 MIL/uL (4.0-5.2); WHITE BLOOD COUNT (AUTO) 8.9 K/uL (4.3-11.0)
[2022-03-05 08:35] LABS: ALBUMIN 2.4 g/dL (3.4-5.0)
[2022-03-05] MEDS: FUROSEMIDE 40 MG/4 ML VIAL IV SCH (09:23)
[2022-03-05] MEDS: GABAPENTIN 300 MG CAPSULE PO SCH (09:23)
[2022-03-05] MEDS: CARVEDILOL 12.5 MG TABLET PO SCH (09:24)
[2022-03-05] MEDS: LEVOFLOXACIN 750 MG /D5W 150ML 150 ML IV SCH (09:25)
[2022-03-05 12:00] VITALS: BP 130/71
[2022-03-05] MEDS: BLOOD SUGAR DIAGNOSTIC 1 EACH STRIP IN SCH ×2 (13:16→13:17)
[2022-03-05 14:00] VITALS: BP 160/67
--- NOTE | 2022-03-05 16:17 | NUR ---
RECEIVED THE PATIENT FROM THE OFF-GOING NURSE, PATIENT A/O X 4, /DENIES PAIN/DISCOMFORT. PATIENT MEDICATED PER MD ORDERS, (SEE eMAR). IVABT ADMINISTERED PER MD ORDERS. . PATIENT HAS PUREWICK IN PLACE DRAINING LIGHT LIZA URINE. PATIENT IS SCHEDULED FOR [facility], VERBAL REPORT VIA THE TELEPHONE GIVEN TO HIRAM MANCINI RN, PATIENT PICKED UP BY [facility], [address], BEDSIDE REPORT GIVEN TO Jody MANCINI EMT. PATIENT IS STABLE LEFT VIA GURNEY
[2022-03-06] MEDS ORDERED: LEVOFLOXACIN (250MG) 250 MG TABLET PO SCH (09:00)
== END 2022-03-05 16:33 | DRG 291 ==
LOC: ER 15:03 → TELE1 19:02
DX: I11.0 Hypertensive heart disease with heart failure (principal); I50.43 Acute on chronic combined systolic (congestive) and diastolic (congestive) heart failure; J96.01 Acute respiratory failure with hypoxia; I69.351 Hemiplegia and hemiparesis following cerebral infarction affecting right dominant side; I24.8 Other forms of acute ischemic heart disease; K27.9 Peptic ulcer, site unspecified, unspecified as acute or chronic, without hemorrhage or perforation; Z87.891 Personal history of nicotine dependence; Z20.822 Contact with and (suspected) exposure to COVID-19; E11.9 Type 2 diabetes mellitus without complications; E78.00 Pure hypercholesterolemia, unspecified; M19.90 Unspecified osteoarthritis, unspecified site; Z88.5 Allergy status to narcotic agent; Z88.0 Allergy status to penicillin; Z98.891 History of uterine scar from previous surgery; Z79.4 Long term (current) use of insulin; Z79.899 Other long term (current) drug therapy; Z79.51 Long term (current) use of inhaled steroids; E66.01 Morbid (severe) obesity due to excess calories; D64.9 Anemia, unspecified; E78.5 Hyperlipidemia, unspecified; Z83.3 Family history of diabetes mellitus; Z86.69 Personal history of other diseases of the nervous system and sense organs; G47.33 Obstructive sleep apnea (adult) (pediatric); J45.909 Unspecified asthma, uncomplicated
CPT/HCPCS: 36415; 36600; 71045-TC; 80048-TC; 80053-TC; 82803-TC; 82962-TC; 83735-TC; 83880; 84100-TC; 84484-TC; 85025-TC; 87081-TC; 93307-TC; 94799-TC; 97112-TC; 97116-TC; 97530-TC; C9803; G0378; J1815; J1940; J1956; J7050